=== PATIENT | female | born 1945 | race Caucasian/White ===

== ENCOUNTER 2018-03-18 18:59 | Inpatient (IN) | payer OTHER ==
[~2018-03-18] VITALS: Ht 162.6 cm; Wt 42.1 kg
[~2018-03-18 18:59] MED LIST: ACTOS30 MG PO; ALENDRONATE SOD35 MG PO; ASPIR 8181 M1 PO; ASPIRIN325 MG PO; ASPIRIN81 M2 PO; ATORVASTATIN CA40 MG PO; ATORVASTATIN CA80 MG PO; BUSPIRONE HCL10 MG PO; CALCIUM 600 +1 EAC7 PO; CIPRO500 MG PO; DAILY VITAMIN1 EAC8 PO; FENOFIBRATE134 M1 PO; FENOFIBRATE160 M1 PO; FOSAMAX35 MG PO; GABAPENTIN300 MG PO; IMDUR30 MG PO; IMDUR60 MG PO; ISOSORBIDE DINI30 MG PO; ISOSORBIDE MN; ISOSORBIDE MONO30 MG PO; LISINOPRIL5 MG PO; MAGNESIUM DR64 M1 PO; MELOXICAM15 MG PO; METFORMIN HCL500 M1 PO; METFORMIN HCL500 MG PO; METOPROLOL SUCC50 MG PO; METOPROLOL TAR100 MG PO; NITROSTAT0.4 MG SL; OMEPRAZOLE20 MG PO; PANTOPRAZOLE SO40 MG PO; PHENYTOIN SODI100 M1 PO; SUPER B COMPL400 MCG PO; TOPIRAMATE100 MG PO; TOPIRAMATE25 MG PO; VENLAFAXINE HC150 M1 PO; VITAMIN B-1100 MG PO; VITAMIN D31000 UNIT PO
[2018-03-18 19:36] LABS: HEMOGLOBIN 13.3 G/DL (11.9-15.5); MCH 31.4 PG (29.0-34.0); MCHC 34.1 G/DL (30.0-36.0); PLATELET COUNT 101 K/uL (156-360); RBC DIS.WIDTH-CV 14.1 % (11.8-14.6); RBC DIS.WIDTH-SD 47.6 % (39-53); RED BLOOD COUNT 4.24 M/uL (3.80-5.20); WHITE BLOOD COUNT 11.9 K/uL (4.1-10.2)
[2018-03-18 20:01] LABS: ALBUMIN 4.5 g/dL (3.2-4.8); CHLORIDE 104 mEq/L (99-109); POTASSIUM 5.4 mEq/L (3.7-5.4); SODIUM 138 mEq/L (136-147)
[2018-03-18 20:03] LABS: GLUCOSE 93 mg/dL (70-99); TOTAL PROTEIN 7.7 g/dL (6.4-8.3)
[2018-03-18 20:05] LABS: TOTAL BILIRUBIN 0.3 mg/dL (0.0-1.0)
[2018-03-18 20:07] LABS: ALKALINE PHOSPHATASE 92 IU/L (3-129); GFR ESTIMATE (CALCULATED) 16 mL/min/
[2018-03-18 20:08] LABS: AST (GOT) 15 IU/L (2-34); UREA NITROGEN (BUN) 55 mg/dL (9-23)
[2018-03-18 20:10] LABS: ALT (GPT) 9 IU/L (3-49); LIPASE 24 U/L (1.0-51.0)
[2018-03-18 21:35] LABS: APPEARANCE CLOUDY ((CLEAR)); BILIRUBIN NEGATIVE; BLOOD SMALL; COLOR YELLOW ((YELLOW)); GLUCOSE (STRIP) NEGATIVE; KETONES NEGATIVE; LEUKOCYTES SMALL; NITRITE NEGATIVE; PROTEIN (STRIP) NEGATIVE; SPECIFIC GRAVITY 1.015 (1.000-1.030); UROBILINOGEN 0.2 MG/DL (0.2-1.0)
[2018-03-18 22:00] LABS: BACTERIA 2+ /HPF; EPITHELIAL CELLS 1+ /HPF; MUCUS NONE SEEN /LPF; RED BLOOD CELLS 0-5 /HPF (0-5); UCUL ADDED? YES; WHITE BLOOD CELLS 0-5 /HPF (0-5)
[2018-03-18] MEDS ORDERED: IMDUR30 MG PO (23:18)
[2018-03-18] MEDS ORDERED: FUROSEMIDE40 MG PO (23:21)
[2018-03-18] MEDS ORDERED: INCRUSE ELLI62.5 MCG IH (23:21)
[2018-03-18] MEDS ORDERED: ADVAIR 250/501 DISK IH (23:21)
[2018-03-18] MEDS ORDERED: METFORMIN HCL500 MG PO ×2 (23:21→23:22)
[2018-03-18] MEDS ORDERED: SPIRONOLACTONE25 MG PO (23:22)
[2018-03-18] MEDS ORDERED: ESCITALOPRAM OX10 MG PO (23:22)
[2018-03-18] MEDS ORDERED: TYLENOL325 M2 PO (23:23)
[2018-03-18] MEDS ORDERED: MAGNESIUM400 M1 PO (23:23)
[2018-03-18] MEDS ORDERED: HAIR, SKIN & N1 EAC1 PO (23:23)
[2018-03-18] MEDS ORDERED: COLLAGEN PLUS1 EACH PO (23:24)
[2018-03-18] MEDS ORDERED: MELATONIN10 M1 PO (23:24)
[2018-03-18] MEDS ORDERED: NATURAL BALANCE15 M1 BOTH EYES (23:25)
[2018-03-19 02:31] LABS: HEMATOCRIT 33.6 % (36.0-46.0); HEMOGLOBIN 11.4 G/DL (11.9-15.5); MCH 31.5 PG (29.0-34.0); MCHC 33.9 G/DL (30.0-36.0); MCV 92.8 FL (83-99); PLATELET COUNT 118 K/uL (156-360); RBC DIS.WIDTH-CV 14.1 % (11.8-14.6); RBC DIS.WIDTH-SD 48.2 % (39-53); RED BLOOD COUNT 3.62 M/uL (3.80-5.20); WHITE BLOOD COUNT 10.7 K/uL (4.1-10.2)
[2018-03-19 04:13] VITALS: BP 100/55
[2018-03-19 07:15] VITALS: BP 102/54
[2018-03-19 08:31] LABS: CHLORIDE 108 MEQ/L (99-109); POTASSIUM 4.9 MEQ/L (3.7-5.4); SODIUM 138 MEQ/L (136-147)
[2018-03-19 08:36] LABS: GLUCOSE 84 mg/dL (70-99); UREA NITROGEN (BUN) 43 mg/dL (9-23)
[2018-03-19 08:37] LABS: GFR ESTIMATE (CALCULATED) 26 mL/min/
[2018-03-19 11:20] VITALS: BP 103/52
[2018-03-19 16:10] VITALS: BP 106/48
[2018-03-19 20:20] VITALS: BP 112/53
[2018-03-19 23:24] VITALS: BP 102/50
[2018-03-20 04:13] VITALS: BP 119/79
[2018-03-20 07:28] LABS: ALBUMIN 3.3 G/DL (3.2-4.8); ALKALINE PHOSPHATASE 55 IU/L (3-129); ALT (GPT) 6 IU/L (3-49); AST (GOT) 14 IU/L (2-34); CHLORIDE 116 MEQ/L (99-109); GFR ESTIMATE (CALCULATED) 43 mL/min/; GLUCOSE 80 mg/dL (70-99); POTASSIUM 4.7 MEQ/L (3.7-5.4); SODIUM 140 MEQ/L (136-147); TOTAL BILIRUBIN 0.3 MG/DL (0.0-1.0); TOTAL PROTEIN 5.3 G/DL (6.4-8.3); UREA NITROGEN (BUN) 23 mg/dL (9-23)
[2018-03-20 07:29] LABS: CREATININE 1.3 MG/DL (0.6-1.3)
[2018-03-20 11:16] VITALS: BP 119/55
[2018-03-20 15:25] VITALS: BP 140/65
[2018-03-20 20:20] VITALS: BP 153/61
[2018-03-20 21:30] LABS: C DIFF TOXIN NEGATIVE (NEGATIVE)
[2018-03-21 00:30] VITALS: BP 96/55
[2018-03-21 04:01] VITALS: BP 107/54
[2018-03-21 06:43] LABS: HEMATOCRIT 31.4 % (36.0-46.0); HEMOGLOBIN 10.4 G/DL (11.9-15.5); MCHC 33.1 G/DL (30.0-36.0); MCV 93.5 FL (83-99); PLATELET COUNT 122 K/uL (156-360); RBC DIS.WIDTH-CV 13.8 % (11.8-14.6); RBC DIS.WIDTH-SD 47.1 % (39-53); RED BLOOD COUNT 3.36 M/uL (3.80-5.20); WHITE BLOOD COUNT 8.1 K/uL (4.1-10.2)
[2018-03-21 07:10] VITALS: BP 116/54
[2018-03-21 07:10] LABS: CHLORIDE 111 MEQ/L (99-109); CREATININE 1.1 MG/DL (0.6-1.3); GFR ESTIMATE (CALCULATED) 52 mL/min/; GLUCOSE 76 mg/dL (70-99); POTASSIUM 4.8 MEQ/L (3.7-5.4); SODIUM 140 MEQ/L (136-147); UREA NITROGEN (BUN) 12 mg/dL (9-23)
[2018-03-21 15:10] VITALS: BP 116/55
[2018-03-21 23:14] VITALS: BP 116/56
[2018-03-22 06:45] LABS: CHLORIDE 114 MEQ/L (99-109); CREATININE 1.1 MG/DL (0.6-1.3); GFR ESTIMATE (CALCULATED) 52 mL/min/; GLUCOSE 79 mg/dL (70-99); POTASSIUM 4.5 MEQ/L (3.7-5.4); SODIUM 141 MEQ/L (136-147); UREA NITROGEN (BUN) 10 mg/dL (9-23)
[2018-03-22 07:07] VITALS: BP 130/58
[2018-03-22 16:16] VITALS: BP 146/60
[2018-03-22 20:30] VITALS: BP 121/56
[2018-03-22 22:46] VITALS: BP 117/53
[2018-03-23 05:50] LABS: HEMATOCRIT 29.3 % (36.0-46.0); HEMOGLOBIN 9.6 G/DL (11.9-15.5); MCH 30.4 PG (29.0-34.0); MCHC 32.8 G/DL (30.0-36.0); MCV 92.7 FL (83-99); PLATELET COUNT 101 K/uL (156-360); RBC DIS.WIDTH-CV 14.1 % (11.8-14.6); RBC DIS.WIDTH-SD 47.7 % (39-53); RED BLOOD COUNT 3.16 M/uL (3.80-5.20); WHITE BLOOD COUNT 7.8 K/uL (4.1-10.2)
[2018-03-23 06:17] LABS: CHLORIDE 111 MEQ/L (99-109); GFR ESTIMATE (CALCULATED) 58 mL/min/; GLUCOSE 88 mg/dL (70-99); MAGNESIUM 1.5 mg/dl (1.3-2.7); POTASSIUM 4.7 MEQ/L (3.7-5.4); SODIUM 140 MEQ/L (136-147); UREA NITROGEN (BUN) 6 mg/dL (9-23)
[2018-03-23 07:04] VITALS: BP 103/54
[2018-03-23 15:05] VITALS: BP 140/64
[2018-03-23 20:14] VITALS: BP 131/59
[2018-03-23 23:39] VITALS: BP 100/53
[2018-03-24 07:17] VITALS: BP 119/58
[2018-03-24 16:21] VITALS: BP 124/70
[2018-03-25 00:07] VITALS: BP 116/67
[2018-03-25 06:37] LABS: HEMATOCRIT 28.3 % (36.0-46.0); HEMOGLOBIN 9.4 G/DL (11.9-15.5); MCH 30.5 PG (29.0-34.0); MCHC 33.2 G/DL (30.0-36.0); MCV 91.9 FL (83-99); RBC DIS.WIDTH-CV 14.3 % (11.8-14.6); RBC DIS.WIDTH-SD 48.7 % (39-53); RED BLOOD COUNT 3.08 M/uL (3.80-5.20); WHITE BLOOD COUNT 6.6 K/uL (4.1-10.2)
[2018-03-25 06:40] LABS: ALKALINE PHOSPHATASE 62 IU/L (3-129); ALT (GPT) 10 IU/L (3-49); AST (GOT) 14 IU/L (2-34); CHLORIDE 107 MEQ/L (99-109); GFR ESTIMATE (CALCULATED) 58 mL/min/; GLUCOSE 124 mg/dL (70-99); MAGNESIUM 1.6 mg/dl (1.3-2.7); POTASSIUM 4.2 MEQ/L (3.7-5.4); SODIUM 137 MEQ/L (136-147); TOTAL BILIRUBIN 0.3 MG/DL (0.0-1.0); TOTAL PROTEIN 4.8 G/DL (6.4-8.3); UREA NITROGEN (BUN) 5 mg/dL (9-23)
[2018-03-25 07:30] VITALS: BP 117/56
[2018-03-25 07:38] LABS: PLAT.SUFFICIENCY DECREASED; PLATELET CLUMPS PRESENT - PLATELET COUNTS APPEARS DECREASED
[2018-03-25 07:42] LABS: PLATELET COUNT UNABLE TO REPORT K/uL (156-360)
[2018-03-25 15:40] VITALS: BP 109/53
[2018-03-25 17:10] LABS: STOOL OCCULT BLD 1ST SPECIMEN NEGATIVE
[2018-03-25 23:44] VITALS: BP 123/56
[2018-03-26 06:19] LABS: HEMATOCRIT 29.1 % (36.0-46.0); HEMOGLOBIN 9.7 G/DL (11.9-15.5); MCH 30.9 PG (29.0-34.0); MCHC 33.3 G/DL (30.0-36.0); MCV 92.7 FL (83-99); RBC DIS.WIDTH-CV 14.6 % (11.8-14.6); RBC DIS.WIDTH-SD 49.5 % (39-53); RED BLOOD COUNT 3.14 M/uL (3.80-5.20); WHITE BLOOD COUNT 6.9 K/uL (4.1-10.2)
[2018-03-26 06:37] LABS: CHLORIDE 107 MEQ/L (99-109); CREATININE 1.2 MG/DL (0.6-1.3); GFR ESTIMATE (CALCULATED) 47 mL/min/; GLUCOSE 129 mg/dL (70-99); MAGNESIUM 1.6 mg/dl (1.3-2.7); PLATELET COUNT 71 K/uL (156-360); POTASSIUM 4.3 MEQ/L (3.7-5.4); SODIUM 138 MEQ/L (136-147); UREA NITROGEN (BUN) 10 mg/dL (9-23)
[2018-03-26 07:00] VITALS: BP 106/55
[2018-03-26 09:48] LABS: IMM.RETIC FRACTION 25.9 % (3-19); RETIC HGB EQUIVALENT 33.9 (28-36); RETICULOCYTE COUNT 1.9 % (0.5-1.8)
[2018-03-26 10:07] LABS: IRON 38 MCG/DL (35-150); TRANSFERRIN (TIBC) 160.8 mg/dL (215-380); TRANSFERRIN SATUR. 24 % (20-55)
[2018-03-26 10:17] LABS: FERRITIN 89 NG/ML (10-291)
[2018-03-26 15:05] VITALS: BP 119/56
[2018-03-27] VITALS: BP 104/52
[2018-03-27 06:30] LABS: HEMATOCRIT 28.2 % (36.0-46.0); HEMOGLOBIN 9.3 G/DL (11.9-15.5); MCH 30.6 PG (29.0-34.0); MCV 92.8 FL (83-99); PLATELET COUNT 66 K/uL (156-360); RBC DIS.WIDTH-CV 14.7 % (11.8-14.6); RBC DIS.WIDTH-SD 50.1 % (39-53); RED BLOOD COUNT 3.04 M/uL (3.80-5.20)
[2018-03-27 07:00] VITALS: BP 95/44
[2018-03-27 07:02] LABS: CHLORIDE 109 MEQ/L (99-109); CREATININE 1.1 MG/DL (0.6-1.3); GFR ESTIMATE (CALCULATED) 52 mL/min/; MAGNESIUM 1.6 mg/dl (1.3-2.7); POTASSIUM 4.3 MEQ/L (3.7-5.4); SODIUM 138 MEQ/L (136-147); UREA NITROGEN (BUN) 8 mg/dL (9-23)
[2018-03-27 07:05] LABS: GLUCOSE 86 mg/dL (70-99)
[2018-03-27 15:00] VITALS: BP 118/64
[2018-03-27 23:22] VITALS: BP 117/56
[2018-03-28 06:52] LABS: HEMATOCRIT 30.7 % (36.0-46.0); HEMOGLOBIN 10.1 G/DL (11.9-15.5); MCH 30.8 PG (29.0-34.0); MCHC 32.9 G/DL (30.0-36.0); MCV 93.6 FL (83-99); PLATELET COUNT 64 K/uL (156-360); RBC DIS.WIDTH-SD 51.1 % (39-53); RED BLOOD COUNT 3.28 M/uL (3.80-5.20); WHITE BLOOD COUNT 7.2 K/uL (4.1-10.2)
[2018-03-28 07:10] VITALS: BP 140/68
[2018-03-28 07:13] LABS: CHLORIDE 109 MEQ/L (99-109); CREATININE 1.1 MG/DL (0.6-1.3); GFR ESTIMATE (CALCULATED) 52 mL/min/; GLUCOSE 97 mg/dL (70-99); MAGNESIUM 1.5 mg/dl (1.3-2.7); POTASSIUM 4.4 MEQ/L (3.7-5.4); SODIUM 140 MEQ/L (136-147); UREA NITROGEN (BUN) 6 mg/dL (9-23)
[2018-03-28 15:20] VITALS: BP 133/58
[2018-03-28 23:00] VITALS: BP 111/54
[2018-03-29 06:52] VITALS: BP 116/54
[2018-03-29 15:45] VITALS: BP 140/63
[2018-03-30 00:27] VITALS: BP 112/72
[2018-03-30 06:40] LABS: HEMATOCRIT 29.2 % (36.0-46.0); HEMOGLOBIN 9.6 G/DL (11.9-15.5); MCH 31.3 PG (29.0-34.0); MCHC 32.9 G/DL (30.0-36.0); MCV 95.1 FL (83-99); RBC DIS.WIDTH-SD 51.6 % (39-53); RED BLOOD COUNT 3.07 M/uL (3.80-5.20); WHITE BLOOD COUNT 6.8 K/uL (4.1-10.2)
[2018-03-30 06:42] LABS: PLATELET COUNT 88 K/uL (156-360)
[2018-03-30 06:56] VITALS: BP 123/58
[2018-03-30 07:01] LABS: CHLORIDE 109 MEQ/L (99-109); GFR ESTIMATE (CALCULATED) 58 mL/min/; GLUCOSE 96 mg/dL (70-99); POTASSIUM 4.1 MEQ/L (3.7-5.4); SODIUM 140 MEQ/L (136-147); UREA NITROGEN (BUN) 6 mg/dL (9-23)
[2018-03-30 14:56] VITALS: BP 129/58
[2018-03-30 20:55] LABS: ABSOLUTE RETICULOCYTE CT. 0.1 M/uL (0.02-0.08); IMM.RETIC FRACTION 10.1 % (3-19); RETIC HGB EQUIVALENT 33.5 (28-36)
[2018-03-30 21:10] LABS: RETICULOCYTE COUNT 2.8 % (0.5-1.8)
[2018-03-30 21:20] LABS: IMMUNOGLOBULIN G 761 MG/DL (650-1600); IMMUNOGLOBULIN M 288 MG/DL (50-300)
[2018-03-30 21:21] LABS: A/G RATIO 1.7 (1.1-1.8); ALBUMIN 3.3 G/DL (3.4-5.0); C-REACTIVE PROTEIN 10.8 MG/L (0-10); TOTAL PROTEIN 5.3 G/DL (6.4-8.2)
[2018-03-30 23:25] VITALS: BP 120/60
[2018-03-31 07:05] VITALS: BP 119/58
[2018-03-31 07:24] LABS: HEMATOCRIT 29.5 % (36.0-46.0); HEMOGLOBIN 9.7 G/DL (11.9-15.5); MCH 30.8 PG (29.0-34.0); MCHC 32.9 G/DL (30.0-36.0); MCV 93.7 FL (83-99); PLATELET COUNT 95 K/uL (156-360); RBC DIS.WIDTH-CV 14.8 % (11.8-14.6); RBC DIS.WIDTH-SD 50.7 % (39-53); RED BLOOD COUNT 3.15 M/uL (3.80-5.20); WHITE BLOOD COUNT 7.4 K/uL (4.1-10.2)
[2018-03-31 11:02] LABS: HEPATITIS C ANTIBODY Nonreactive
[2018-03-31 15:02] LABS: ALBUMIN 2.97 G/DL (3.6-4.9); ALPHA-1 GLOBULIN 0.33 G/DL (0.15-0.40); ALPHA-2 GLOBULIN 0.74 G/DL (0.45-0.85); GAMMA-GLOBULIN 0.76 G/DL (0.60-1.35)
[2018-03-31 15:10] VITALS: BP 127/58
[2018-04-01 00:02] VITALS: BP 124/61
[2018-04-01 06:14] LABS: HEMATOCRIT 32.1 % (36.0-46.0); HEMOGLOBIN 10.5 G/DL (11.9-15.5); MCH 30.7 PG (29.0-34.0); MCHC 32.7 G/DL (30.0-36.0); MCV 93.9 FL (83-99); PLATELET COUNT 88 K/uL (156-360); RBC DIS.WIDTH-CV 14.9 % (11.8-14.6); RBC DIS.WIDTH-SD 51.4 % (39-53); RED BLOOD COUNT 3.42 M/uL (3.80-5.20); WHITE BLOOD COUNT 6.7 K/uL (4.1-10.2)
[2018-04-01 06:38] LABS: CHLORIDE 110 MEQ/L (99-109); GFR ESTIMATE (CALCULATED) 58 mL/min/; GLUCOSE 85 mg/dL (70-99); POTASSIUM 4.5 MEQ/L (3.7-5.4); SODIUM 141 MEQ/L (136-147); UREA NITROGEN (BUN) 5 mg/dL (9-23)
[2018-04-01 07:15] VITALS: BP 137/64
[2018-04-01 16:09] VITALS: BP 129/57
[2018-04-01 18:08] LABS: STOOL OCCULT BLD 1ST SPECIMEN NEGATIVE
[2018-04-02 01:11] VITALS: BP 122/59
[2018-04-02 07:27] VITALS: BP 133/63
[2018-04-02 15:25] VITALS: BP 121/58
[2018-04-02 22:53] VITALS: BP 131/61
[2018-04-03 05:52] LABS: HEMATOCRIT 31.9 % (36.0-46.0); HEMOGLOBIN 10.6 G/DL (11.9-15.5); MCH 30.7 PG (29.0-34.0); MCHC 33.2 G/DL (30.0-36.0); MCV 92.5 FL (83-99); RBC DIS.WIDTH-CV 14.6 % (11.8-14.6); RBC DIS.WIDTH-SD 49.3 % (39-53); RED BLOOD COUNT 3.45 M/uL (3.80-5.20); WHITE BLOOD COUNT 8.5 K/uL (4.1-10.2)
[2018-04-03 06:14] LABS: PLATELET COUNT 147 K/uL (156-360)
[2018-04-03 07:03] VITALS: BP 126/59
[2018-04-04 00:16] VITALS: BP 132/60
[2018-04-04 06:54] LABS: CHLORIDE 100 MEQ/L (99-109); CREATININE 0.9 MG/DL (0.6-1.3); GFR ESTIMATE (CALCULATED) > 59 mL/min/; GLUCOSE 102 mg/dL (70-99); UREA NITROGEN (BUN) 9 mg/dL (9-23)
[2018-04-04 06:56] LABS: SODIUM 129 MEQ/L (136-147)
[2018-04-04 07:04] VITALS: BP 126/60
[2018-04-04 19:50] VITALS: BP 130/65
[2018-04-04 21:00] VITALS: BP 125/61
[2018-04-04 23:49] VITALS: BP 127/58
[2018-04-05 05:10] VITALS: BP 111/55
[2018-04-05 05:25] LABS: HEMATOCRIT 30.1 % (36.0-46.0); MCH 30.6 PG (29.0-34.0); MCHC 33.2 G/DL (30.0-36.0); PLATELET COUNT 164 K/uL (156-360); RBC DIS.WIDTH-CV 13.6 % (11.8-14.6); RBC DIS.WIDTH-SD 46.1 % (39-53); RED BLOOD COUNT 3.27 M/uL (3.80-5.20); WHITE BLOOD COUNT 6.3 K/uL (4.1-10.2)
[2018-04-05 05:45] LABS: CHLORIDE 101 MEQ/L (99-109); CREATININE 0.9 MG/DL (0.6-1.3); GFR ESTIMATE (CALCULATED) > 59 mL/min/; GLUCOSE 98 mg/dL (70-99); POTASSIUM 4.7 MEQ/L (3.7-5.4); SODIUM 129 MEQ/L (136-147); UREA NITROGEN (BUN) 9 mg/dL (9-23)
[2018-04-05 07:15] VITALS: BP 13/56
[2018-04-05 15:28] VITALS: BP 144/68
[2018-04-05] MEDS ORDERED: MYLICON,MYLANTA80 MG PO (15:38)
[2018-04-05] MEDS ORDERED: BENTYL20 MG PO (15:41)
[2018-04-05] MEDS ORDERED: GLUCOTROL XL5 MG PO (15:44)
[2018-04-05] MEDS ORDERED: HYDROCODON-ACE1 EAC9 PO (15:44)
== END 2018-04-05 20:10 | disposition home or self-care (01) | DRG 357 ==
LOC: EME 18:59 → RME 18:59 → 5EAST 03-19 01:44 → 4EAST 03-19 01:44 → EDOF 03-19 01:44 → 5EAST 03-19 01:44 → ENRESERV 03-19 01:45 → 5EAST 03-19 03:32 → ENRESERV 04-04 17:36 → 4EAST 04-04 20:14 → ENRESERV 04-05 11:29 → 5EAST 04-05 15:01
PROVIDERS: Hospitalist; Internal Medicine; Physician Assistant; Surgery
DX: K55.1 Chronic vascular disorders of intestine (principal); N17.9 Acute kidney failure, unspecified; E86.0 Dehydration; K52.9 Noninfective gastroenteritis and colitis, unspecified; T38.3X5A Adverse effect of insulin and oral hypoglycemic [antidiabetic] drugs, initial encounter; E11.9 Type 2 diabetes mellitus without complications; E87.8 Other disorders of electrolyte and fluid balance, not elsewhere classified; D69.6 Thrombocytopenia, unspecified; D63.8 Anemia in other chronic diseases classified elsewhere; R82.71 Bacteriuria; I10 Essential (primary) hypertension; K64.8 Other hemorrhoids; K57.30 Diverticulosis of large intestine without perforation or abscess without bleeding; K64.4 Residual hemorrhoidal skin tags; I25.10 Atherosclerotic heart disease of native coronary artery without angina pectoris; E78.5 Hyperlipidemia, unspecified; R63.4 Abnormal weight loss; G89.29 Other chronic pain; K44.9 Diaphragmatic hernia without obstruction or gangrene; K21.9 Gastro-esophageal reflux disease without esophagitis; R68.81 Early satiety; F32.9 Major depressive disorder, single episode, unspecified; F17.210 Nicotine dependence, cigarettes, uncomplicated; Z86.73 Personal history of transient ischemic attack (TIA), and cerebral infarction without residual deficits; Z95.1 Presence of aortocoronary bypass graft; Z95.5 Presence of coronary angioplasty implant and graft; Z95.810 Presence of automatic (implantable) cardiac defibrillator; Z90.711 Acquired absence of uterus with remaining cervical stump; Z96.651 Presence of right artificial knee joint; Z79.82 Long term (current) use of aspirin
CPT/HCPCS: 71260; 74018; 74175; 74176; 74177; 76770; 80048; 80053; 81003; 82272; 82607; 82728; 82746; 82784; 82948; 83010 90; 83036; 83540; 83605; 83615; 83630; 83690; 83735; 83883 90; 84165; 84466; 85027; 85046; 85049; 85651; 86140; 86334; 86803; 87077; 87086 GA; 87177; 87186; 87329; 87493; 87506; 88305; 88342 TC; 94640; 99281; 99284; C1725; C1760; C1769; C1894; J0696; J0744; J1170; J1626; J1644; J1815; J2060; J2250; J2405; J2765; J3010; J7030; J7040; J7120; S0028; S0030